=== PATIENT | male | born 2000 | race Caucasian/White ===

== ENCOUNTER 2022-02-01 16:31 | Emergency (ER) | payer MEDICAID ==
[~2022-02-01] VITALS: Ht 180.3 cm; Wt 75.0 kg
[~2022-02-01 16:31] MED LIST: HYDR-4383 PO; NAPR-1154 PO
[2022-02-01 16:36] VITALS: BP 145/80
[2022-02-01] MEDS ORDERED: AMOX500C2 PO (17:34)
[2022-02-01] MEDS ORDERED: IBUP-1986 PO (17:34)
== END 2022-02-01 17:51 | disposition home or self-care (01) ==
LOC: ER 16:31
DX: K02.9 Dental caries, unspecified (principal); Z79.899 Other long term (current) drug therapy
CPT/HCPCS: 99283

== ENCOUNTER 2022-06-17 13:59 | Emergency (ER) | payer MEDICAID ==
[~2022-06-17] VITALS: Ht 180.3 cm; Wt 75.9 kg
[~2022-06-17 13:59] MED LIST changes: +IBUP-1986 PO
[2022-06-17 14:09] VITALS: BP 116/69
== END 2022-06-17 15:03 | disposition home or self-care (01) ==
LOC: ER 13:59
DX: M25.511 Pain in right shoulder (principal); V00.131A Fall from skateboard, initial encounter; Y93.89 Activity, other specified; Y92.89 Other specified places as the place of occurrence of the external cause; Y99.8 Other external cause status; Z79.899 Other long term (current) drug therapy
CPT/HCPCS: 99281

== ENCOUNTER 2022-07-28 10:49 | Emergency (ER) | payer MEDICAID ==
[~2022-07-28] VITALS: Ht 180.3 cm; Wt 76.8 kg
[2022-07-28 11:17] VITALS: BP 148/91
== END 2022-07-28 13:36 | disposition home or self-care (01) ==
LOC: ER 10:49
DX: S60.222A Contusion of left hand, initial encounter (principal); W22.8XXA Striking against or struck by other objects, initial encounter; Y93.89 Activity, other specified; Y92.89 Other specified places as the place of occurrence of the external cause; Y99.8 Other external cause status
CPT/HCPCS: 73130; 99283

== ENCOUNTER 2022-08-07 20:45 | Emergency (ER) | payer MEDICAID ==
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
== END 2022-08-07 23:12 | disposition left against medical advice (07) ==
LOC: ER 20:46
DX: Z00.8 Encounter for other general examination (principal); Z53.21 Procedure and treatment not carried out due to patient leaving prior to being seen by health care provider

== ENCOUNTER 2022-11-13 19:28 | Emergency (ER) | payer MEDICAID | END 2022-11-13 20:25 | disposition left against medical advice (07) | LOC: ER 19:28 | DX: R56.9 Unspecified convulsions (principal); Z53.21 Procedure and treatment not carried out due to patient leaving prior to being seen by health care provider | CPT/HCPCS: 93005 ==

== ENCOUNTER 2023-08-15 08:37 | Emergency (ER) | payer MEDICAID ==
[~2023-08-15] VITALS: Ht 180.3 cm; Wt 68.0 kg
[2023-08-15 09:14] LABS: STREP A SCREEN NEGATIVE (Neg)
[2023-08-15] MEDS ORDERED: LORazepam 2 mg/ml vial IV ONE (09:25)
[2023-08-15] MEDS ORDERED: normal saline 1000ML IV soln IVB ONE (09:25)
[2023-08-15] MEDS ORDERED: pantoprazole 40 MG vial IV ONE (09:25)
[2023-08-15] MEDS ORDERED: ondansetron/PF 4mg/2ml inj IV ONE (09:25)
[2023-08-15] MEDS ORDERED: pantoprazole 40MG/NS 100ML BAG 100 ML IV ONE (09:35)
[2023-08-15 10:30] LABS: BASOPHILS # (AUTO) 0.1 X10'3 (0-0.2); BASOPHILS % (AUTO) 0.2 % (0-1); EOSINOPHILS # (AUTO) 0.2 X10'3 (0-0.9); EOSINOPHILS % (AUTO) 0.6 % (0-6); HEMATOCRIT 52.6 % (42.0-52.0); HEMOGLOBIN 17.4 g/dl (14.0-17.9); LYMPHOCYTES # (AUTO) 1.6 X10'3 (1.1-4.8); LYMPHOCYTES % (AUTO) 6.4 % (21-51); MEAN CORPUSCULAR HEMOGLOBIN 32.1 PG (27.0-31.0); MEAN CORPUSCULAR VOLUME 97.4 FL (78-98); MEAN PLATELET VOLUME 8.9 FL (7.4-10.4); MONOCYTES # (AUTO) 1.7 X10'3 (0-0.9); MONOCYTES % (AUTO) 6.4 % (2-12); NEUTROPHILS # (AUTO) 22.4 X10'3 (1.8-7.7); NEUTROPHILS % (AUTO) 86.4 % (42-75); PLATELET COUNT 271 X10'3 (140-440); RED BLOOD COUNT 5.41 X10'6 (4.70-6.10); RED CELL DISTRIBUTION WIDTH 13.6 % (11.5-14.5)
[2023-08-15 10:35] LABS: WHITE BLOOD COUNT 25.9 X10'3 (4.5-11.0)
[2023-08-15 10:53] LABS: PLATELET ESTIMATE NORMAL; TOTAL CELLS COUNTED 100
[2023-08-15 11:33] LABS: ALANINE AMINOTRANSFERASE 24 U/L (12-78); ALBUMIN 4.6 G/DL (3.4-5.0); ALBUMIN/GLOBULIN RATIO 1.4 (1.1-1.5); ALKALINE PHOSPHATASE 79 IU/L (46-116); ANION GAP 10 (8-16); ASPARTATE AMINO TRANSFERASE 21 U/L (10-37); BILIRUBIN,TOTAL 0.3 MG/DL (0.1-1.0); BLOOD UREA NITROGEN 8 MG/DL (7-18); BUN/CREATININE RATIO 7.7 (10.0-20.0); CALCIUM 9.7 MG/DL (8.5-10.1); CHLORIDE 107 MMOL/L (99-107); CREATININE 1.04 MG/DL (0.60-1.10); GLUCOSE 111 MG/DL (70-104); LIPASE 30 U/L (16-77); POTASSIUM 5.2 MMOL/L (3.5-5.1); SODIUM 141 MMOL/L (135-145); eCRCL 107 ML/MIN; eGFR 89 ML/MIN
[2023-08-15 12:07] LABS: BASOPHILS # (AUTO) 0.2 X10'3 (0-0.2); BASOPHILS % (AUTO) 0.9 % (0-1); EOSINOPHILS # (AUTO) 0.1 X10'3 (0-0.9); EOSINOPHILS % (AUTO) 0.4 % (0-6); HEMATOCRIT 46.8 % (42.0-52.0); HEMOGLOBIN 15.2 g/dl (14.0-17.9); LYMPHOCYTES # (AUTO) 0.7 X10'3 (1.1-4.8); LYMPHOCYTES % (AUTO) 3.5 % (21-51); MEAN CORPUSCULAR HEMOGLOBIN 31.8 PG (27.0-31.0); MEAN CORPUSCULAR HGB CONC 32.6 g/dL (33.0-36.5); MEAN CORPUSCULAR VOLUME 97.8 FL (78-98); MEAN PLATELET VOLUME 8.8 FL (7.4-10.4); MONOCYTES # (AUTO) 0.9 X10'3 (0-0.9); MONOCYTES % (AUTO) 4.2 % (2-12); NEUTROPHILS # (AUTO) 18.7 X10'3 (1.8-7.7); PLATELET COUNT 213 X10'3 (140-440); RED BLOOD COUNT 4.79 X10'6 (4.70-6.10); RED CELL DISTRIBUTION WIDTH 13.3 % (11.5-14.5); WHITE BLOOD COUNT 20.5 X10'3 (4.5-11.0)
[2023-08-15] MEDS ORDERED: PANT-47 PO (13:05)
[2023-08-15] MEDS ORDERED: ONDA8TAB13 PO (13:05)
[2023-08-15 14:01] VITALS: BP 112/60; PULSE 68; RESP 18; TEMP 97.9; O2SAT 99
== END 2023-08-15 14:11 | disposition home or self-care (01) ==
LOC: ER 08:37
DX: R11.2 Nausea with vomiting, unspecified (principal); Z20.822 Contact with and (suspected) exposure to COVID-19; D72.829 Elevated white blood cell count, unspecified; F17.200 Nicotine dependence, unspecified, uncomplicated; R51.9 Headache, unspecified
CPT/HCPCS: 36415; 80053; 83690; 85007; 85025; 87081; 87811; 87880; 96365; 96375; 99285; C9113; J2060; J2405; J7030

== ENCOUNTER 2023-09-17 21:46 | Emergency (ER) | payer MEDICAID, OTHER ==
[~2023-09-17] VITALS: Ht 180.3 cm; Wt 75.0 kg
[~2023-09-17 21:46] MED LIST changes: +ONDA8TAB13 PO; +PANT-47 PO
[2023-09-17 21:47] VITALS: TEMP 99.3
[2023-09-17] MEDS ORDERED: ibuprofen tablet 400 MG TABLET PO ONE (23:25)
[2023-09-17] MEDS ORDERED: bacitracin 15gm ointment TP ONE (23:25)
[2023-09-17] MEDS ORDERED: acetaminophen 325mg tablet PO ONE (23:25)
[2023-09-18 00:02] VITALS: BP 117/76; PULSE 75; RESP 18; O2SAT 97
== END 2023-09-18 00:13 | disposition home or self-care (01) ==
LOC: ER 21:47
DX: S80.212A Abrasion, left knee, initial encounter (principal); S80.211A Abrasion, right knee, initial encounter; M25.512 Pain in left shoulder; W18.39XA Other fall on same level, initial encounter; Y93.89 Activity, other specified; Y92.89 Other specified places as the place of occurrence of the external cause; Y99.8 Other external cause status
CPT/HCPCS: 73030; 73560; 99284

== ENCOUNTER 2023-09-18 09:50 | Emergency (ER) | payer OTHER, MEDICAID ==
[~2023-09-18] VITALS: Ht 180.3 cm; Wt 75.0 kg
[2023-09-18 09:57] VITALS: BP 111/73; PULSE 71; RESP 18; TEMP 98.1; O2SAT 100
== END 2023-09-18 12:28 | disposition left against medical advice (07) ==
LOC: ER 09:51
DX: Z00.8 Encounter for other general examination (principal); Z53.21 Procedure and treatment not carried out due to patient leaving prior to being seen by health care provider
CPT/HCPCS: 99281

== ENCOUNTER 2024-02-19 11:19 | Emergency (ER) | payer MEDICAID ==
[~2024-02-19] VITALS: Ht 180.3 cm; Wt 75.2 kg
[2024-02-19 11:31] VITALS: TEMP 98.6
[2024-02-19 12:19] LABS: ALANINE AMINOTRANSFERASE 26 U/L (12-78); ALBUMIN 3.9 G/DL (3.4-5.0); ALBUMIN/GLOBULIN RATIO 1.1 (1.1-1.5); ALKALINE PHOSPHATASE 85 IU/L (46-116); ANION GAP 12 (8-16); ASPARTATE AMINO TRANSFERASE 20 U/L (10-37); BILIRUBIN,TOTAL 0.3 MG/DL (0.1-1.0); BLOOD UREA NITROGEN 17 MG/DL (7-18); BUN/CREATININE RATIO 14.9 (10.0-20.0); CALCIUM 9.1 MG/DL (8.5-10.1); CHLORIDE 103 MMOL/L (99-107); CREATININE 1.14 MG/DL (0.60-1.10); GLUCOSE 118 MG/DL (70-104); LIPASE 47 U/L (16-77); POTASSIUM 3.5 MMOL/L (3.5-5.1); SODIUM 143 MMOL/L (135-145); TOTAL CARBON DIOXIDE 27.6 MMOL/L (24-32); TOTAL PROTEIN 7.4 G/DL (6.4-8.2); eCRCL 108 ML/MIN; eGFR 80 ML/MIN
[2024-02-19 12:24] LABS: BASOPHILS # (AUTO) 0.1 X10'3 (0-0.2); BASOPHILS % (AUTO) 0.7 % (0-1); EOSINOPHILS # (AUTO) 0.2 X10'3 (0-0.9); HEMATOCRIT 43.7 % (42.0-52.0); HEMOGLOBIN 14.9 g/dl (14.0-17.9); LYMPHOCYTES % (AUTO) 20.3 % (21-51); MEAN CORPUSCULAR HEMOGLOBIN 32.2 PG (27.0-31.0); MEAN CORPUSCULAR HGB CONC 34.1 g/dL (33.0-36.5); MEAN CORPUSCULAR VOLUME 94.4 FL (78-98); MEAN PLATELET VOLUME 8.5 FL (7.4-10.4); MONOCYTES % (AUTO) 10.3 % (2-12); NEUTROPHILS # (AUTO) 6.6 X10'3 (1.8-7.7); NEUTROPHILS % (AUTO) 66.7 % (42-75); PLATELET COUNT 244 X10'3 (140-440); RED BLOOD COUNT 4.63 X10'6 (4.70-6.10); RED CELL DISTRIBUTION WIDTH 13.5 % (11.5-14.5); WHITE BLOOD COUNT 9.9 X10'3 (4.5-11.0)
[2024-02-19 12:40] LABS: BILIRUBIN,URINE SMALL (Neg); CLARITY,URINE SLIGHTLY CLOUDY (Clear); COLOR,URINE YELLOW (Yellow); GLUCOSE, URINE NEGATIVE (Neg); KETONES,URINE NEGATIVE (Neg); LEUKOCYTE ESTERASE ,URINE TRACE (Neg); NITRITES, URINE NEGATIVE (Neg); OCCULT BLOOD,URINE LARGE (Neg); PROTEIN,URINE NEGATIVE (Neg)
[2024-02-19 12:41] LABS: UA COLLECTION TYPE VOIDED
[2024-02-19 12:42] VITALS: BP 120/71; PULSE 90; RESP 18; O2SAT 97
[2024-02-19 12:47] LABS: BACTERIA,URINE FEW /HPF (Neg); MUCUS STRANDS FEW /LPF (Neg); SQUAMOUS EPITHELIAL CELL,UR FEW /LPF (FEW)
[2024-02-19 12:48] LABS: WBC,URINE 0-4 /HPF (0-4)
[2024-02-19] MEDS: normal saline 1000ML IV soln IVB ONE (14:16)
[2024-02-19] MEDS: ketorolac tromethamine 15mg/ml inj. IV ONE (15:50)
== END 2024-02-19 15:53 | disposition home or self-care (01) ==
LOC: ER 11:20
DX: R10.11 Right upper quadrant pain (principal); R31.9 Hematuria, unspecified; F12.90 Cannabis use, unspecified, uncomplicated; Z79.899 Other long term (current) drug therapy; Z79.1 Long term (current) use of non-steroidal anti-inflammatories (NSAID)
CPT/HCPCS: 36415; 74176; 80053; 81001; 83690; 85025; 87088; 96360; 99284; J7030

== ENCOUNTER → 2024-04-25 | Emergency (ER) | payer MEDICAID ==
[~2024-04-25] VITALS: Ht 177.8 cm; Wt 69.0 kg
[~2024-04-25] MED LIST changes: +AMOX-117 PO; +IBUP-1985 PO; +ONDA-245 PO; -ONDA8TAB13 PO
[2024-04-25 17:27] VITALS: BP 11/60; PULSE 76; RESP 16; TEMP 98.4; O2SAT 99
== END | disposition home or self-care (01) ==
LOC: ER 16:31
DX: K04.7 Periapical abscess without sinus (principal); F15.90 Other stimulant use, unspecified, uncomplicated; Z79.899 Other long term (current) drug therapy
CPT/HCPCS: 99283